=== PATIENT | female | born 1955 | race Caucasian/White ===

== ENCOUNTER 2018-02-11 01:52 | Emergency (ER) | payer SELFPAY ==
[~2018-02-11] VITALS: Ht 165.1 cm; Wt 81.8 kg
[2018-02-11] MEDS ORDERED: FOSAMAX 70MG TA70 MG PO (04:10)
[2018-02-11] MEDS ORDERED: POTASSIUM CHLO10 ME6 PO (04:11)
[2018-02-11] MEDS ORDERED: LEXAPRO 10MG10 MG PO (04:11)
[2018-02-11] MEDS ORDERED: ZESTRIL2.5 M1 PO (04:11)
[2018-02-11] MEDS ORDERED: LASIX20 M1 PO (04:11)
[2018-02-11] MEDS ORDERED: COREG 6.256.25 MG/TA PO (04:11)
[2018-02-11] MEDS ORDERED: NORCO 325 MG-51 TA1 PO (04:34)
[2018-02-11 08:35] VITALS: BP 133/86
== END 2018-02-11 08:35 | disposition home or self-care (01) ==
LOC: ED 01:52
DX: S06.0X9A Concussion with loss of consciousness of unspecified duration, initial encounter (principal); S01.01XA Laceration without foreign body of scalp, initial encounter; S30.0XXA Contusion of lower back and pelvis, initial encounter; I10 Essential (primary) hypertension; W10.8XXA Fall (on) (from) other stairs and steps, initial encounter; Y92.008 Other place in unspecified non-institutional (private) residence as the place of occurrence of the external cause
CPT/HCPCS: J2405; J3010; J7030

== ENCOUNTER → 2022-01-08 | Outpatient (CLI) | payer MEDICARE, MEDICAID ==
[~2022-01-08] MED LIST: COREG 6.256.25 MG/TA PO; FOSAMAX 70MG TA70 MG PO; LASIX20 M1 PO; LEXAPRO 10MG10 MG PO; NORCO 325 MG-51 TA1 PO; POTASSIUM CHLO10 ME6 PO; ZESTRIL2.5 M1 PO
== END ==
LOC: RAD 09:00 → LAB 09:22
DX: I25.10 Atherosclerotic heart disease of native coronary artery without angina pectoris (principal); K44.9 Diaphragmatic hernia without obstruction or gangrene
CPT/HCPCS: Q9967